=== PATIENT | female | born 1995 | race Caucasian/White ===

== ENCOUNTER 2017-11-18 11:47 | Emergency (ER) | payer OTHER ==
[~2017-11-18] VITALS: Ht 170.2 cm; Wt 72.6 kg
[2017-11-18 11:49] VITALS: BP 155/85
[2017-11-18] MEDS ORDERED: IBUPROFEN 600 MG TABLET PO ONE ×2 (12:16→12:30)
[2017-11-18] MEDS ORDERED: HYDROCODONE/APAP 10/325MG 1 EA TABLET ONE (12:16)
[2017-11-18] MEDS ORDERED: HYDROCODONE/APAP 10/325MG 1 EA TABLET PO ONE (12:30)
== END 2017-11-18 13:23 | disposition home or self-care (01) ==
LOC: ER 11:48
DX: D16.01 Benign neoplasm of scapula and long bones of right upper limb (principal)
CPT/HCPCS: 29125; 73110; 99284; A4606; Z7610